=== PATIENT | female | born 1950 | race Caucasian/White ===

== ENCOUNTER 2019-08-30 11:43 | Emergency (ER) | payer MEDICARE ==
[~2019-08-30] VITALS: Ht 160 cm; Wt 49.9 kg
[~2019-08-30 11:43] MED LIST: ASCORBIC ACID500 MG PO; Calcium Carbonate PO; FEOSOL325 MG PO; FOLIC ACID1 MG PO; FOSAMAX70 MG PO; HYDROCODON-ACE1 EA11 PO; MAGNESIUM OXID400 MG PO; METHOTREXATE2.5 MG PO; Multivitamins/Minerals PO; PROTONIX40 MG/ML PO; Sodium Chloride Flush INJ; XARELTO10 MG PO; ZINC SULFATE220 M1 PO
--- OUTSIDE RECORDS SUMMARY | 2019-08-30 11:46 | XMS REPORT ---
Author Author [facility] Address Unknown Phone Unavailable Care Team Providers Care Mh Teacher Name Role Phone ELVIRA ИРИНА Unavailable Unavailable Problems This patient has no known problems. Allergies, Adverse Reactions, Alerts This patient has no known allergies or adverse reactions. Medications This patient has no known medications. Results Test Description Test Time Test Comments Text Results Atomic Results Result Comments CT SHOULDER LEFT WO [place] [address] Patient Name: RENÉ SHARMA MR #: [id number] : 1950 Age/Sex: 66/F Req #: [id number] Adm Physician: ИРИНА FELIX MD Ordered by: ALVERTO MEEKS MD Report #: [id number] Location: MED/SURG Room/Bed: [facility] Procedure: [id number] CT/CT SHOULDER LEFT WO Exam Date: 03/24/17 Exam Time: 1510 REPORT STATUS: Signed EXAMINATION: CT of left shoulder, without contrast. TECHNIQUE: Axial spiral CT images of the left shoulder were performed. No intravenous contrast was administered. Coronal and sagittal reformatted images in bone and soft tissue windows were obtained. CLINICAL HISTORY: Status post fall, shoulder pain COMPARISON: Left shoulder plain films 03/22/2017 FINDINGS: No acute, displaced fractures or dislocations. Satisfactory alignment of the humeral head with the glenoid. No lytic or blastic lesions. Mild cystic degenerative changes in the humeral head. Mild degenerative changes in the glenohumeral and acromioclavicular joints. Soft tissues are grossly unremarkable. Visualized portion of the left upper lobe are clear. IMPRESSION: 1. No acute, displaced fracture or dislocation. Signed by: Dr. Liz Gracia M.D. on 03/24/2017 4:23 PM Dictated By: LIZ GRACIA MD 22 Transcribed By: BO on 03/24/171622 COPY TO: ALVERTO MEEKS MD HIP LEFT 2-3 VW (+/- PELVIS) [place] [address] Patient Name: RENÉ SHARMA MR #: [id number] : 1950 Age/Sex: 66/F Req #: [id number] Adm Physician: ИРИНА FELIX MD Ordered by: ALVERTO MEEKS MD Report #: [id number] Location: MED/SURG Room/Bed: [facility] Procedure: [id number] DX/HIP LEFT 2-3 VW (+/- PELVIS) Exam Date: Exam Time: REPORT STATUS: Signed EXAMINATION: Left Hip Films with AP pelvis CLINICAL HISTORY:Pain COMPARISON: Left hip 03/22/2017 DISCUSSION: Mild osteopenia. Status post ORIF of previously visualized left femoral intertrochanteric fracture. Were intact. No acute, displaced fractures or dislocations. Femoral head is well located within the acetabulum. No osteolytic or osteoblastic lesions. Rest of the bony structures is intact. Moderate amount of retained stool in the sigmoid and rectum IMPRESSION: 1. Status post ORIF of previously visualized left intertrochanteric fracture with intact hardware. Signed by: Dr. Liz Gracia M.D. on 03/24/2017 1:06 PM Dictated By: LIZ GRACIA MD 05 Transcribed By: BO on 1305 COPY TO: ALVERTO MEEKS MD FLUROSCOPY OVER 1 H [place] [address] Patient Name: RENÉ SHARMA MR #: [id number] : 1950 Age/Sex: 66/F Req #: [id number] Adm Physician: ИРИНА FELIX MD Ordered by: ALVERTO MEEKS MD Report #: [id number] Location: MED/SURG Room/Bed: [facility] Procedure: [id number] DX/FLUROSCOPY OVER 1 H Exam Date: 03/24/17 Exam Time: 1107 REPORT STATUS: Signed Fluoroscopic imaging for surgical guidance HISTORY: Intraoperative guidance. COMPARISON: None available. FINDINGS: Multiple fluoroscopic spot images were acquired of the left proximal femur during the open reduction and internal fixation of a left femoral neck fracture. An intramedullary darron is partially visualized. The major fracture fragments are in near anatomic alignment. IMPRESSION: Fluoroscopic imaging provided for surgical guidance. Please see the dictation of the surgical report for full clinical details. Signed by: Dr. Maryann Boyer M.D. on 03/25/2017 5:15 PM Dictated By: MARYANN BOYER MD 14 Transcribed By: BO on 03/25/171714 COPY TO: ALVERTO MEEKS MD CHEST SINGLE (PORTABLE) [place] [address] Patient Name: RENÉ SHRAMA MR #: [id number] : 1950 Age/Sex: 66/F Req #: [id number] Adm Physician: Ordered by: JACINTO ROY MD Report #: [id number] Location: ER Room/Bed: Procedure: [id number] DX/CHEST SINGLE (PORTABLE) Exam Date: 03/22/17 Exam Time: 2100 REPORT STATUS: Signed CHEST SINGLE (PORTABLE), 03/22/2017 9:21 PM Technique: CHEST SINGLE (PORTABLE) Comparison: None available. Clinical history: Pain status post fall Findings: Cardiac mediastinal silhouette is unremarkable. Large lung volumes versus mild hyperinflation. There is no consolidation, pleural effusion or pneumothorax. Mild biapical pleural- parenchymal scarring. Right glenohumeral osteoarthrosis. Impression: 1. Lines/Tubes: None 2. No acute abnormality. Signed by: Dr Sharon Peralta MD on 03/22/2017 9:46 PM Dictated By: SHARON PERALTA MD 45 Transcribed By: BO on 03/22/172145 COPY TO: JACINTO ROY MD HAND 3+ VIEWS LEFT [address] [address] Patient Name: RENÉ SHARMA MR #: [id number] : 1950 Age/Sex: 66/F Req #: [id number] Adm Physician: Ordered by: JACINTO ROY MD Report #: [id number] Location: ER Room/Bed: Procedure: [id number] DX/HAND 3+ VIEWS LEFT Exam Date: 03/22/17 Exam Time: 2110 REPORT STATUS: Signed SHOULDER LEFT COMPLETE, HAND 3+ VIEWS LEFT Comparison: None Clinical history: Left shoulder and hand pain, fall Findings: Significantly decreased bone mineralization limits evaluation. Left shoulder: Little movement between internal and external rotation views. Subtle lucency at the superior aspect of the greater tuberosity. Mild AC degenerative change. Left hand: Severe radiocarpal, carpal, CMC, MCP, and IP degenerative changes with complete joint space loss and proliferation/remodeling. 1st digit IP subluxation. Nondisplaced oblique third metacarpal fracture. Impression: Decreased bone mineralization limits evaluation. 1. Indeterminate lucency of the greater tuberosity. Recommend dedicated shoulder/humeral views to evaluate for nondisplaced fracture. 2. Nondisplaced third metacarpal fracture. 3. Severe degenerative changes throughout the hand and wrist. Inflammatory arthropathy could be considered. Signed by: Dr Sharon Peralta MD on 03/22/2017 9:43 PM Dictated By: SHARON PERALTA MD 42 Transcribed By: BO on 03/22/172142 COPY TO: JACINTO ROY MD SHOULDER LEFT COMPLETE [place] [address] Patient Name: RENÉ SHARMA MR #: [id number] : 1950 Age/Sex: 66/F Req #: [id number] [facility] Physician: Ordered by: JACINTO ROY MD Report #: [id number] Location: Room/Bed: Procedure: [id number] DX/SHOULDER LEFT COMPLETE Exam Date: 03/22/17 Exam Time: 2110 REPORT STATUS: Signed SHOULDER LEFT COMPLETE, HAND 3+ VIEWS LEFT Comparison: None Clinical history: Left shoulder and hand pain, fall Findings: Significantly decreased bone mineralization limits evaluation. Left shoulder: Little movement between internal and external rotation views. Subtle lucency at the superior aspect of the greater tuberosity. Mild AC degenerative change. Left hand: Severe radiocarpal, carpal, CMC, MCP, and IP degenerative changes with complete joint space loss and proliferation/remodeling. 1st digit IP subluxation. Nondisplaced oblique third metacarpal fracture. Impression: Decreased bone mineralization limits evaluation. 1. Indeterminate lucency of the greater tuberosity. Recommend dedicated shoulder/humeral views to evaluate for nondisplaced fracture. 2. Nondisplaced third metacarpal fracture. 3. Severe degenerative changes throughout the hand and wrist. Inflammatory arthropathy could be considered. Signed by: Dr Sharon Peralta MD on 03/22/2017 9:43 PM Dictated By: SHARON PERALTA MD 42 Transcribed By: BO on 03/22/172142 COPY TO: JACINTO ROY MD HIP LEFT 2-3 VW (+/- PELVIS) [place] [address] Patient Name: RENÉ SHARMA MR #: [id number] : 1950 Age/Sex: 66/F Req #: [id number] [facility] Physician: Ordered by: JACINTO ROY MD Report #: [id number] Location: Room/Bed: Procedure: [id number] DX/HIP LEFT 2-3 VW (+/- PELVIS) Exam Date: Exam Time: REPORT STATUS: Signed HIP LEFT 2-3 VW (+/- PELVIS) Comparison: None Clinical history: Pain status post fall Findings: Suboptimal crosstable lateral view. There is a displaced fracture involving the lesser trochanter and subtrochanteric region. Impression: Moderately displaced left intertrochanteric/subtrochanteric fracture. Signed by: Dr Sharon Peralta MD on 03/22/2017 9:49 PM Dictated By: SHARON PERALTA MD 48 Transcribed By: BO on 03/22/172148 COPY TO: JACINTO ROY MD
[2019-08-30] MEDS ORDERED: TRAMADOL HCL 50 MG TAB PO NR (12:00)
--- NOTE | 2019-08-30 12:44 | Diagnostic Imaging Report ---
Exam: Right foot and left lower leg History: Fall Comparison: None. Findings: No fracture or malalignment. Bone demineralization. No abnormal soft tissue calcification or soft tissue defect. Impression: No acute osseous abnormality Signed by: Dr. Quincy Luke M.D. on 08/30/2019 12:40 PM
== END 2019-08-30 12:55 | disposition home or self-care (01) ==
LOC: ER 11:43
DX: S80.12XA Contusion of left lower leg, initial encounter (principal); S90.31XA Contusion of right foot, initial encounter; W01.0XXA Fall on same level from slipping, tripping and stumbling without subsequent striking against object, initial encounter; M06.9 Rheumatoid arthritis, unspecified
CPT/HCPCS: 99282